=== PATIENT | male | born 1985 | race Hispanic/Latino ===

== ENCOUNTER 2017-09-28 06:42 | Inpatient (IN) | payer OTHER ==
[2017-09-27 16:24] LABS: BASOPHILS % 0.3 % (0.0-1.0); EOSINOPHILS # (AUTO) 0.1 (0.0-0.4); EOSINOPHILS % 0.9 % (0.0-6.0); HEMATOCRIT 42.6 % (38.2-49.6); HEMOGLOBIN 15.1 g/dL (14.0-18.0); LYMPHOCYTES # (AUTO) 1.4 (1.0-3.2); LYMPHOCYTES % 11.2 % (18.0-39.1); MEAN CORPUSCULAR HEMOGLOBIN 31.7 pg (28-32); MEAN CORPUSCULAR HGB CONC 35.4 g/dL (31-35); MEAN CORPUSCULAR VOLUME 89.5 fL (81-99); MONOCYTES % 8.2 % (4.4-11.3); NEUTROPHILS # (AUTO) 9.6 (2.1-6.9); NEUTROPHILS % 79.1 % (38.7-80.0); PLATELET COUNT 278 x10e3/uL (140-360); RED BLOOD COUNT 4.76 x10e6/uL (4.3-5.7); RED CELL DISTRIBUTION WIDTH 12.4 % (11.7-14.4)
[2017-09-27 16:45] LABS: ANION GAP 14.7 mmol/L (8-16); BLOOD UREA NITROGEN 15 mg/dL (7-26); BUN/CREATININE RATIO 16 (6-25); CALCIUM 9.3 mg/dL (8.4-10.2); CARBON DIOXIDE 22 mmol/L (22-29); CHLORIDE 106 mmol/L (98-107); CREATININE, SERUM 0.95 mg/dL (0.72-1.25); EST GLOMERULAR FILTRATION RATE > 60 ML/MIN (60-); GLUCOSE 103 mg/dL (74-118); POTASSIUM 3.7 mmol/L (3.5-5.1); SODIUM 139 mmol/L (136-145)
[~2017-09-28] VITALS: Ht 172.7 cm; Wt 139.7 kg
[2017-09-28] MEDS ORDERED: VENLAFAXINE HCL75 M2 (07:45)
[2017-09-28] MEDS ORDERED: CLINDAMYCIN HC150 MG (07:45)
[2017-09-28] MEDS ORDERED: SULFAMETHOXAZO1 EAC1 (07:45)
[2017-09-28] MEDS ORDERED: TYLENOL WITH C1 EACH PO (07:45)
[2017-09-28] MEDS ORDERED: AMOX TR-K CLV1 EAC2 (07:45)
[2017-09-28] MEDS ORDERED: HYDROGEN PEROXIDE 120 ML BTL ONE (08:26)
[2017-09-28] MEDS ORDERED: LIDOCAINE HCL 2% 30 ML TUBE ONE (08:26)
[2017-09-28] MEDS ORDERED: GELATIN SPONGE 12-7MM ONE (08:28)
[2017-09-28] MEDS ORDERED: CEFOXITIN SOD 1 GM VIAL ONE (09:02)
[2017-09-28] MEDS ORDERED: PROMETHAZINE HCL (IM) 25 MG/ML VIAL IM PRN (10:00)
[2017-09-28] MEDS ORDERED: FENTANYL CITRATE/PF 100MCG/2 ML INJ ONE ×2 (10:19→17:59)
[2017-09-28] MEDS ORDERED: MORPHINE SULFATE 2 MG/ML SYR ONE (11:00)
--- NOTE | 2017-09-28 11:28 | Operative Report ---
DATE OF PROCEDURE: September 28, 2017 PREOPERATIVE DIAGNOSIS: Right perirectal abscess/gluteal abscess. POSTOPERATIVE DIAGNOSIS: Right perirectal abscess/gluteal abscess. PROCEDURE PERFORMED: Rectal examination under anesthesia, anoscopy, incision and drainage of perirectal/right gluteal abscess. ANESTHESIA: General endotracheal. ESTIMATED BLOOD LOSS: Minimal. DRAINS: None. COMPLICATIONS: None. INDICATIONS AND FINDINGS: The patient is a 32-year-old male who had been referred to us by primary care. He was initially seen last at the primary care office with an infection of the right gluteal area, started on oral antibiotics and was followed up on Wednesday. The pain got worse and the swelling got bigger, the reason for which he was admitted. INTRAOPERATIVE FINDINGS: The patient had a large abscess in the right perirectal and gluteal area. With the patient in the lithotomy position, this abscess was located between 10 and 12 o'clock. It was located right at the junction between the gluteal and perirectal area. The cavity was entered, and thick, nonfoul-smelling pus was found. Culture and sensitivities were taken. We were not able to identify a fistula either by palpation or by irrigation with peroxide or by gentle probing of the cavity. Anoscopy was then performed, and the cavity was irrigated and did not see any evidence of peroxide emanating into the anal canal consistent with an internal fistula opening. A 1/4-inch Moran drain was placed to drain the cavity. DESCRIPTION OF PROCEDURE: With the patient lying on the operative table in the supine position, after administration of general anesthesia, he was prepped and draped for incision and drainage of a perirectal/gluteal abscess. The most fluctuant area was incised and the cavity entered. Loculations were broken down. We then irrigated the cavity with peroxide and inspected the anus. There was no evidence of a fistula opening. We introduced a probe and gently probed the area. Again, we did not see any fistula. We performed anoscopy again. Then we used a lacrimal probe with the tip bent and tried to probe the anal canal looking for a fistula opening. We did not find any. We did not palpate any. At this point, we completed the procedure by making a counterincision along the initial incision, slightly posterior and inferior to that, and connected the 2 sites with a 1/4-inch Moran drain that was tied to itself with 3-0 silk. We irrigated the cavity again and inspected the anal canal again. We did not see any evidence again of pus or peroxide indicating an internal opening. Then we packed the cavity with a 1-inch iodoform gauze. Sterile dressing was applied. The patient tolerated the procedure well and taken to the recovery room in stable condition. Job#: [id number]
[2017-09-28 11:38] VITALS: BP 136/79
[2017-09-28] MEDS: PIPER-TAZ 3.375 GM 50 ML IV SCH ×3 (12:00→23:35)
[2017-09-28] MEDS: SODIUM CHLORIDE 0.9% 1000ML 1,000 ML IV SCH ×2 (12:00→20:21)
[2017-09-28 12:02] VITALS: BP 136/76
[2017-09-28] MEDS: HYDROCODONE/APAP 7.5MG-325MG 1 EA TAB PO PRN ×2 (12:55→20:21)
[2017-09-28] MEDS: CLINDAMYCIN PHOS 900MG/ D5W 50 50 ML IV SCH ×2 (13:00→22:18)
[2017-09-28 16:12] VITALS: BP 104/58
[2017-09-28] MEDS ORDERED: DEXAMETHASONE SOD PHOS INJ 4 MG/ML VIAL ONE (17:41)
[2017-09-28] MEDS ORDERED: KETOROLAC TROMETHAMINE 30 MG/ML VIAL ONE (17:41)
[2017-09-28] MEDS ORDERED: ONDANSETRON HCL INJ 2 MG/ML VIAL ONE (17:41)
[2017-09-28] MEDS ORDERED: LIDOCAINE HCL 2% LOCAL INJ 5 ML SDV VIAL INJ ONE (17:41)
[2017-09-28] MEDS ORDERED: PROPOFOL IV EMULSION 10 MG/ML 20 ML VIAL ONE (17:41)
[2017-09-28] MEDS ORDERED: SEVOFLURANE INHAL SOLN 250 ML PEN BTL ONE (17:41)
[2017-09-28] MEDS ORDERED: MORPHINE SULFATE INJ 10 MG/ML ONE (17:59)
[2017-09-28] MEDS ORDERED: MIDAZOLAM HCL 2 MG/2 ML VIAL ONE (17:59)
[2017-09-28 20:00] VITALS: BP 138/83
[2017-09-28 23:57] VITALS: BP 138/83
[2017-09-29] VITALS (7 sets, daily range): BP systolic 109–149; BP diastolic 57–96
[2017-09-29] MEDS: HYDROCODONE/APAP 7.5MG-325MG 1 EA TAB PO PRN ×4 (00:29→19:45)
[2017-09-29] MEDS: SODIUM CHLORIDE 0.9% 1000ML 1,000 ML IV SCH ×2 (05:41→15:29)
[2017-09-29] MEDS: CLINDAMYCIN PHOS 900MG/ D5W 50 50 ML IV SCH ×3 (05:41→22:00)
[2017-09-29] MEDS: PIPER-TAZ 3.375 GM 50 ML IV SCH ×4 (05:52→23:38)
[2017-09-29] MEDS: HYDROMORPHONE 1MG/1ML INJ IV PRN ×4 (09:25→23:38)
[2017-09-30] VITALS: BP 116/74
[2017-09-30] MEDS: SODIUM CHLORIDE 0.9% 1000ML 1,000 ML IV SCH ×2 (02:02→11:52)
[2017-09-30] MEDS: HYDROMORPHONE 1MG/1ML INJ IV PRN ×4 (02:29→12:20)
[2017-09-30 04:00] VITALS: BP 140/86
[2017-09-30] MEDS: CLINDAMYCIN PHOS 900MG/ D5W 50 50 ML IV SCH ×2 (06:02→13:52)
[2017-09-30] MEDS: PIPER-TAZ 3.375 GM 50 ML IV SCH ×2 (06:40→12:00)
[2017-09-30 08:00] VITALS: BP 109/74
[2017-09-30 08:43] VITALS: BP 140/86
[2017-09-30] MEDS: HYDROCODONE/APAP 7.5MG-325MG 1 EA TAB PO PRN (11:35)
[2017-09-30 12:00] VITALS: BP 98/56
[2017-09-30] MEDS ORDERED: CEFTAZIDIME SOD 2 GM/NS 100ML 100 ML IV ONE (13:00)
[2017-09-30] MEDS ORDERED: CEFTAZIDIME 2 GM VIAL IV ONE (13:00)
[2017-09-30] MEDS ORDERED: CEFTRIAXONE SOD 2 GM VIAL IV ONE (13:30)
[2017-09-30] MEDS ORDERED: LEVAQUIN500 MG PO (13:56)
== END 2017-09-30 15:14 | disposition home or self-care (01) | DRG 330 ==
LOC: OR 06:42 → PACU V 10:00 → IMCU 11:42 → OBSVTOIN 09-29 12:17 → MED/SURG2 09-29 19:17
PROVIDERS: ADMIT Surgery; ATTEND Surgery
PROC: 0D9P00Z Drainage of Rectum with Drainage Device, Open Approach (ICD-10-PCS; principal; 2017-09-28 09:00)
CPT/HCPCS: 36415; 80048; 85025; 87071; 87075; 87186; 87205; G0378; J0694; J0696; J0715; J1100; J1170; J1885; J2001; J2250; J2270; J2405; J2543; J7030

== ENCOUNTER → 2019-05-19 | Day surgery (SDC) | payer OTHER ==
[2019-05-18 14:47] LABS: BASOPHILS % 0.3 % (0.0-1.0); EOSINOPHILS # (AUTO) 0.1 (0.0-0.4); EOSINOPHILS % 1.3 % (0.0-6.0); HEMATOCRIT 45.9 % (38.2-49.6); HEMOGLOBIN 15.6 g/dL (14.0-18.0); LYMPHOCYTES # (AUTO) 2.7 (1.0-3.2); MEAN CORPUSCULAR HEMOGLOBIN 30.8 pg (28-32); MEAN CORPUSCULAR VOLUME 90.7 fL (81-99); MONOCYTES # (AUTO) 0.6 (0.2-0.8); MONOCYTES % 6.3 % (4.4-11.3); NEUTROPHILS # (AUTO) 5.9 (2.1-6.9); NEUTROPHILS % 62.8 % (38.7-80.0); PLATELET COUNT 233 x10e3/uL (140-360); RED BLOOD COUNT 5.06 x10e6/uL (4.3-5.7); RED CELL DISTRIBUTION WIDTH 12.8 % (11.7-14.4)
[2019-05-18 15:02] LABS: ANION GAP 12.3 mmol/L (8-16); BLOOD UREA NITROGEN 9 mg/dL (7-26); BUN/CREATININE RATIO 11 (6-25); CALCIUM 8.9 mg/dL (8.4-10.2); CARBON DIOXIDE 27 mmol/L (22-29); CHLORIDE 105 mmol/L (98-107); CREATININE, SERUM 0.83 mg/dL (0.72-1.25); EST GLOMERULAR FILTRATION RATE > 60 ML/MIN (60-); GLUCOSE 95 mg/dL (74-118); POTASSIUM 3.3 mmol/L (3.5-5.1); SODIUM 141 mmol/L (136-145)
[~2019-05-19] MED LIST: ACETAMINOPHEN 1000 MG/100 ML IV ONE; ACETAMINOPHEN/CODEINE 300MG - 30MG TAB ONE; AMOX TR-K CLV1 EAC2; BUPIVACAINE 0.25% 30ML SDV INJ ONE; CLINDAMYCIN HC150 MG; DESFLURANE 240 ML BTL INH ONE; DEXAMETHASONE SOD PHOS INJ 4 MG/ML VIAL ONE; FENTANYL CITRATE/PF 100MCG/2 ML INJ ONE; LEVAQUIN500 MG PO; LEXAPRO10 MG PO; LIDOCAINE 1% W/EPINEPHRINE 20 ML VIAL ONE; MIDAZOLAM HCL 2 MG/2 ML VIAL ONE; ONDANSETRON HCL INJ 2MG/ML 2ML 2 MG/ML VIAL ONE; PROPOFOL IV EMULSION 10 MG/ML 20 ML VIAL ONE; ROCURONIUM BROMIDE 10 MG/ML 5ML VIAL ONE; SUCCINYLCHOLINE CHLORIDE 20 MG/ML 10ML VIAL ONE; SULFAMETHOXAZO1 EAC1; TYLENOL WITH C1 EACH PO; VENLAFAXINE HCL75 M2
[2019-05-19 15:40] VITALS: BP 137/79
--- NOTE | 2019-05-19 20:03 | Operative Report ---
DATE OF PROCEDURE: 05/19/2019 SURGEON: Reji Go MD PREOPERATIVE DIAGNOSIS: Perirectal abscess with fistula. POSTOPERATIVE DIAGNOSIS: Perirectal abscess with fistula. OPERATION PERFORMED: Incision and drainage of perirectal abscess and fistulectomy. ANESTHESIA: General. COMPLICATIONS: None. ESTIMATED BLOOD LOSS: Minimal. DESCRIPTION OF PROCEDURE: With the patient lying in bed in the lithotomy position under good general anesthesia, the perineum was prepped with Betadine solution and draped in the usual manner. Examination at this point revealed the fistulous opening, which was about 3 inches away from the anorectal verge at the 12 o'clock position. A fistula probe was then placed and it easily traveled all the way to an opening at the 12 o'clock position internally. The fistulous tract was then opened to make sure that we preserved the sphincter. After this was done, the fistula tract and the abscess cavity was all debrided and cleaned up. Hemostasis was ascertained. The whole area was then infiltrated with 0.25% Marcaine and 1% lidocaine with epinephrine mixed in equal parts and a good block was obtained. Again, hemostasis was ascertained. A Gelfoam pack was then placed. A dressing was applied. The sponge, lap, and needle count was correct. The patient tolerated the procedure well and returned to the recovery room in stable condition. MD YOLETTE VenturaR/MODL /[id number]
== END | disposition home or self-care (01) ==
LOC: OR 10:53
PROVIDERS: ATTEND Surgery
DX: K60.5 Anorectal fistula (principal); G47.33 Obstructive sleep apnea (adult) (pediatric); R73.03 Prediabetes; I10 Essential (primary) hypertension; Z01.810 Encounter for preprocedural cardiovascular examination; Z01.812 Encounter for preprocedural laboratory examination
CPT/HCPCS: 36415 ×2; 46270; 80048; 84132; 85025; 93005; J0131; J0330; J1100; J2405; J2704